=== PATIENT | female | born 1965 | race Caucasian/White ===

== ENCOUNTER 2017-03-19 09:34 | Inpatient (IN) | payer BC ==
[~2017-03-19] VITALS: Ht 157.5 cm; Wt 124.7 kg
[~2017-03-19 09:34] MED LIST: ASPI81TA2 PO; AZIT250T PO; DIAZ5TAB PO; Ipratropium/Albuterol Sulfate NEB; ONDA4TAB10 PO; OXYC-323 PO; PHEN37.53 PO; TIZA4CAP PO; TRAM50TA PO
--- NOTE | 2017-03-19 10:15 | NUR ---
The patient, HALIE REYNOSO, 51 y/o, F admitted by LIZ RIVAS MD, was given written information regarding hospital policies, unit procedures and contact persons. Patient arrived from home accompanied by spouse. Denies pain at this time. Patient was instructed on use of call light. Patient resting in bed at this time.
[2017-03-19 10:30] VITALS: BP 135/80
[2017-03-19 11:05] VITALS: BP 135/80
--- NOTE | 2017-03-19 11:20 | EKG ---
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
[2017-03-19 11:23] LABS: BASO % 1 % (0-3); EOS # 0.1 x10^3/uL (0.0-0.7); EOS % 2 % (0-3); HEMATOCRIT 40.1 % (36.0-47.0); HEMOGLOBIN 13.3 g/dL (12.0-15.5); LYMPH # 1.8 x10^3/uL (1.0-4.8); LYMPH % 25 % (24-48); MEAN CORPUSCULAR HEMOGLOBIN 31 pg (25-35); MEAN CORPUSCULAR HGB CONC 33 g/dL (31-37); MEAN CORPUSCULAR VOLUME 94 fL (79-100); MONO # 0.5 x10^3/uL (0.0-1.1); MONO % 7 % (0-9); NEUT # 4.7 x10^3uL (1.8-7.7); NEUT % 66 % (31-73); PLATELET COUNT 235 x10^3/uL (140-400); RED BLOOD COUNT 4.28 x10^6/uL (3.50-5.40); RED CELL DISTRIBUTION WIDTH 13.8 % (11.5-14.5); WHITE BLOOD COUNT 7.1 x10^3/uL (4.0-11.0)
[2017-03-19 11:47] LABS: ALBUMIN 3.6 g/dL (3.4-5.0); CALCIUM 8.6 mg/dL (8.5-10.1); CREATININE 0.9 mg/dL (0.6-1.0); GFR 65.8; POTASSIUM 4.3 mmol/L (3.5-5.1); TOTAL BILIRUBIN 0.6 mg/dL (0.2-1.0); TOTAL PROTEIN 7.1 g/dL (6.4-8.2)
[2017-03-19] MEDS ORDERED: FLUO20CA16 PO (12:07)
[2017-03-19] MEDS ORDERED: ALPR0.254 PO (12:07)
[2017-03-19] MEDS ORDERED: HYDR12.58 PO (12:07)
[2017-03-19] MEDS ORDERED: LISI-334 PO (12:07)
--- NOTE | 2017-03-19 12:38 | RAD ---
Exam: PA and lateral chest radiograph History: Chest pain and pressure, shortness of air. Comparison: 02/04/2016. Findings: Cardiomediastinal silhouette is within normal limits for size. Bilateral lung nguyễn are free of focal infiltrate. No pleural effusion is seen. Cholecystectomy clips are present. Impression: No acute cardiopulmonary process.
[2017-03-19 15:10] VITALS: BP 153/51
--- NOTE | 2017-03-19 17:16 | PDOC2 ---
CONSULT The patient has been seen and examined and the full consult has been dictated.~ I have summarized the most important points for review while the note is being transcribed.~ Please see the dictation for complete details. Summary: CP: Atypical Repeat Trop. If negative, dc home with OP w/u Problems: SIMRAN MENA MD Mar 19, 2017 17:16
--- NOTE | 2017-03-19 17:35 | NUR ---
Per Dr. Weathers, run troponin, if negative, patient can discharge to home.
--- NOTE | 2017-03-19 18:27 | NUR ---
Discharge Note: HALIE REYNOSO [address] Discharge instructions and discharge home medications reviewed with Patient and a copy given. All questions have been answered and understanding verbalized. The following instructions and handouts were given: chest pain Discontinued lines and drains: IV removed. Patient discharged to home accompanied by spouse and family.
--- NOTE | 2017-03-19 18:27 | NUR ---
Troponin negative. Verified okay to discharge with Dr. Cee.
[2017-03-19] MEDS ORDERED: ENOXAPARIN 40 MG/0.4 ML DISP.SYRIN. SQ SCH (21:00)
--- NOTE | 2017-03-19 23:04 | CONS ---
DATE OF CONSULTATION: 03/19/2017 CARDIOLOGY CONSULTATION REASON FOR CONSULTATION: Chest pain. REQUESTING PHYSICIAN: The person requesting the consultation is Dr. Liz Cee. HISTORY OF PRESENT ILLNESS: This is a 51-year-old white female with a history of obesity and hypertension, who went to see her primary care today for followup of some labs for evaluation of SLE. While over there, she reported that she has been having pain in the back of her neck and upper left shoulder and hence has been admitted to rule out a myocardial infarction. She is currently pain free. She reports that the pain gets worse sometimes with inspiration, occasionally with walking, but also at rest. There is no consistent relationship to exertion. She in fact has stairs at home, which she has used to go up and down, which does not always cause shortness of breath or chest pain. She does get edema towards the end of the day. REVIEW OF SYSTEMS: Shortness of breath, chest pain and edema. There are no fevers. There is no cough. The rest of the 10 organ review of system was negative. PREVIOUS MEDICAL HISTORY: She has a history of hypertension. There is no history of diabetes, stroke, vascular disease or congestive heart failure. FAMILY HISTORY: There is no family history of premature coronary artery disease. SOCIAL HISTORY: She does not do any exercises. 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 She does not smoke or take alcohol. MEDICATIONS: Prior to admission, hydrochlorothiazide 25 mg once a day, lisinopril 20 mg once a day, alprazolam and Prozac. PAST SURGICAL HISTORY: She is status post hysterectomy, appendicectomy, cholecystectomy and bone spurs. PHYSICAL EXAMINATION: GENERAL: She is morbidly obese. Her pulse rate is 72 and regular. Blood pressure is 153/51 but has ranged from 135/80-153/51. O2 sats are 95% on room air. HEENT: Pupils are equal and reactive. Extraocular movements are normal. Sclerae clear. Mucous membranes are moist. NECK: Supple. No thyromegaly. Jugular venous pressure is not elevated. No carotid bruits. CARDIOVASCULAR SYSTEM: Revealed normal first and second heart sounds. There are no murmurs, rubs or gallops. LUNGS: Chest has equal breath sounds bilaterally without adventitious sounds. There are no adventitious sounds. No wheezes. ABDOMEN: Morbidly obese. There are no palpable mass or pulsations. There are no bruits. EXTREMITIES: Reveal no edema. Her distal pulses were well felt. MUSCULOSKELETAL: There is no cyanosis or clubbing. There is no tremors. NEUROLOGIC: There is no facial asymmetry. There are no motor or sensory deficits. SKIN: There are no skin rashes. There is no calf muscle tenderness or swelling. INVESTIGATIONS: An EKG shows sinus rhythm without any ST-T wave abnormalities. Her D-dimer and troponin are negative. IMPRESSION: 1. Chest pain: etiology uncertain. The pain is atypical. There are some pleuritic components. There is no definite exertional component. Her EKGs and troponin is negative. She will repeat another troponin and if this is negative, she will evaluate this as an outpatient. 2. Exertional dyspnea: There are no obvious evidence of congestive heart failure. NT-proBNP is negative at 111. We shall get an echocardiogram done as an outpatient. 3. Obesity: I have counseled her about diet and exercise. 4. Other risk factors: There is no family history of coronary artery disease. She does not smoke. Her lipids showed total cholesterol of 162, LDL 97, HDL 53 and triglycerides 63. SIMRAN MENA MD DR: BEULAH/leo JOB#: [id number] / [id number] LIZ Erwin MD
== END 2017-03-19 18:34 | disposition home or self-care (01) | DRG 313 ==
LOC: 1 SOUTH 10:22
PROVIDERS: ADMIT Family Medicine; ATTEND Family Medicine
DX: R07.89 Other chest pain (principal); Z68.43 Body mass index [BMI] 50.0-59.9, adult; M54.9 Dorsalgia, unspecified; R06.09 Other forms of dyspnea; E66.9 Obesity, unspecified; I10 Essential (primary) hypertension; Z90.710 Acquired absence of both cervix and uterus; Z88.5 Allergy status to narcotic agent; Z88.0 Allergy status to penicillin; Z88.8 Allergy status to other drugs, medicaments and biological substances
CPT/HCPCS: 36415; 71020; 80053; 80061; 82550; 83880; 84484; 85027; 85379; 93005

== ENCOUNTER → 2018-01-30 | Outpatient (CLI) | payer BC ==
[~2018-01-30] MED LIST changes: +ALPR0.254 PO; +ASPI-630 PO; -ASPI81TA2 PO; +FLUO20CA16 PO; +HYDR12.58 PO; +LISI-334 PO
--- NOTE | 2018-01-30 14:15 | RAD ---
CT abdomen/pelvis without contrast 01/30/2018 3:30 PM Indication: Right flank pain. Hematuria. Comparison: 11/20/2016 CT abdomen/pelvis Technique: Multiple axial CT images of the abdomen and pelvis were obtained without intravenous contrast. Coronal and sagittal reformats are provided. Findings: There is a 4 mm calcified granuloma the left lung base. Heart size is within normal limits. Evaluation of the solid abdominal viscera is limited by lack of intravenous contrast. There is diffuse hypoattenuation of the hepatic parenchyma suggestive of hepatic steatosis. The spleen is normal in size. Pancreas is normal. Gallbladder is surgically absent. Adrenal glands are normal. The abdominal aorta is normal in course and caliber. There are no pathologically enlarged lymph nodes in the abdomen and pelvis. There is no abdominal free fluid. There is no free intraperitoneal air. Kidneys are symmetric in appearance. There are no calculi identified in the kidneys, ureters or urinary bladder. There is no hydronephrosis. No contour deforming renal mass is suspected. Small and large bowel are normal in caliber. There is no evidence for bowel obstruction. Mild diverticulosis of the sigmoid colon is present. The appendix not visualized. There are no inflammatory changes in the right lower quadrant. Urinary bladder is within normal limits given degree of distention. Uterus is surgically absent. No suspicious adnexal mass is visualized. There are no suspicious osseous lesions. Impression: 1. There are no renal calculi visualized. There is no hydronephrosis. No evidence for obstructive uropathy. If there is persistent clinical concern for hematuria, further evaluation with CT urogram may be of benefit. 2. The appendix is not visualized. There are no inflammatory changes in the right lower quadrant. 3. Diffuse hepatic steatosis. PQRS Compliance Statement: One or more of the following individualized dose reduction techniques were utilized for this examination: 1. Automated exposure control 2. Adjustment of the mA and/or kV according to patient size 3. Use of iterative reconstruction technique
== END | disposition home or self-care (01) ==
LOC: CT 13:15
PROVIDERS: ATTEND Nurse Practitioner Family
DX: R10.11 Right upper quadrant pain (principal); R31.29 Other microscopic hematuria; N22 Calculus of urinary tract in diseases classified elsewhere; K76.0 Fatty (change of) liver, not elsewhere classified
CPT/HCPCS: 74176

== ENCOUNTER 2018-09-20 22:09 | Emergency (ER) | payer BC ==
[~2018-09-20] VITALS: Ht 162.6 cm; Wt 121.6 kg
--- NOTE | 2018-09-20 22:50 | PHYS DOC ---
Past History Past Medical History: Kidney Stones Past Surgical History: Appendectomy, Cholecystectomy, Hysterectomy, Tonsillectomy Alcohol Use: Rarely Drug Use: None Adult General Chief Complaint Chief Complaint: DYSPNEA/RESPIRATOY DISTRESS HPI HPI Patient is a 53 year old female who presents with complaint of right-sided chest and back pain. Patient states that her symptoms have been present over the past 4-5 days. Patient also notes that she has been feeling increasingly short of breath with the symptoms. The patient states that she had a chest x- ray 2 days ago and was told that she had an area in the right lower lobe that looked like "inflammation." Patient states that she was supposed to have a CT scan completed, however this has not been done yet at this time. Denies any associated fever, abdominal pain, or vomiting. Patient also notes that she had blood work done and states that she was told her inflammatory markers were elevated. Due to worsening symptoms this evening the patient came to the emergency department for further evaluation. Patient states that she follows at the office of Dr. Rivas. Has not taken any medications for her symptoms. Patient notes history of lupus. Patient also notes that she was recently treated with antibiotics for bronchitis approximately one month ago. Review of Systems Review of Systems Constitutional: Denies fever or chills [] Eyes: Denies change in visual acuity, redness, or eye pain [] HENT: Denies nasal congestion or sore throat [] Respiratory: Shortness of breath, denies cough[] Cardiovascular: Chest pain, denies edema[] GI: Denies abdominal pain, nausea, vomiting, bloody stools or diarrhea [] : Denies dysuria or hematuria [] Musculoskeletal: Back pain, right shoulder pain[] Integument: Denies rash or skin lesions [] Neurologic: Denies headache, focal weakness or sensory changes [] Endocrine: Denies polyuria or polydipsia [] All other systems were reviewed and found to be within normal limits, except as documented in this note. Current Medications Current Medications Current Medications Medications (Trade) Dose Ordered Sig/Chayito Start Time Stop Time Status Last Admin Dose Admin Fentanyl Citrate (Fentanyl 2ml Vial) 50 mcg PRN Q15MIN PRN 09/20/18 22:45 09/21/18 22:44 UNV Ondansetron HCl (Zofran) 4 mg 1X ONCE 09/20/18 22:45 09/20/18 22:46 UNV Sodium Chloride 1,000 ml @ 125 mls/hr Q8H 09/20/18 22:42 09/21/18 06:41 UNV Allergies Allergies Allergies Coded Allergies Type Severity Reaction Last Updated Verified Penicillins Allergy Intermediate Rash 09/20/18 Yes hydrocodone bitartrate Allergy Intermediate 09/20/18 Yes Physical Exam Physical Exam Constitutional: Alert, afebrile, morbidly obese, appears in moderate discomfort. [] HENT: Normocephalic, atraumatic, bilateral external ears normal, oropharynx moist, no oral exudates, nose normal. [] Eyes: PERRLA, EOMI, conjunctiva normal, no discharge. [] Neck: Normal range of motion, no tenderness, supple, no stridor. [] Cardiovascular:Heart rate regular rhythm, no murmur [] Lungs & Thorax: Bilateral breath sounds clear to auscultation [] Abdomen: Bowel sounds normal, soft, no tenderness, no masses, no pulsatile masses. [] Skin: Warm, dry, no erythema, no rash. [] Back: No tenderness, no CVA tenderness. [] Extremities: There is palpation along right midthoracic distribution of rib cage , no cyanosis, no clubbing, ROM intact, no edema. [] Neurologic: Alert and oriented X 3, normal motor function, normal sensory function, no focal deficits noted. [] Current Patient Data Vital Signs Vital Signs Date Time Temp Pulse Resp B/P (MAP) Pulse Ox O2 Delivery O2 Flow Rate FiO2 09/20/18 22:15 74 20 97 Room Air Lab Results Laboratory Tests Test 09/20/18 23:45 White Blood Count 8.0 x10^3/uL Red Blood Count 4.01 x10^6/uL Hemoglobin 12.6 g/dL Hematocrit 37.4 % Mean Corpuscular Volume 93 fL Mean Corpuscular Hemoglobin 32 pg Mean Corpuscular Hemoglobin Concent 34 g/dL Red Cell Distribution Width 13.4 % Platelet Count 231 x10^3/uL Neutrophils (%) (Auto) 61 % Lymphocytes (%) (Auto) 27 % Monocytes (%) (Auto) 9 % Eosinophils (%) (Auto) 2 % Basophils (%) (Auto) 0 % Neutrophils # (Auto) 4.9 x10^3uL Lymphocytes # (Auto) 2.2 x10^3/uL Monocytes # (Auto) 0.7 x10^3/uL Eosinophils # (Auto) 0.2 x10^3/uL Basophils # (Auto) 0.0 x10^3/uL Erythrocyte Sedimentation Rate 20 D-Dimer (Idnigo) 0.33 mg/L Urine Collection Type Void Urine Color Yellow Urine Clarity Clear Urine pH 7.0 Urine Specific Friant 1.020 Urine Protein Neg Urine Glucose (UA) Neg mg/dL Urine Ketones (Stick) Neg mg/dL Urine Blood Neg Urine Nitrite Neg Urine Bilirubin Neg Urine Urobilinogen Dipstick 0.2 mg/dL Urine Leukocyte Esterase Neg Urine RBC Occ /HPF Urine WBC Occ /HPF Urine Squamous Epithelial Cells Few /LPF Urine Bacteria Few /HPF Sodium Level 139 mmol/L Potassium Level 3.9 mmol/L Chloride Level 106 mmol/L Carbon Dioxide Level 25 mmol/L Anion Gap 8 Blood Urea Nitrogen 18 mg/dL Creatinine 0.9 mg/dL Estimated GFR (Cockcroft-Gault) 65.2 BUN/Creatinine Ratio 20 Glucose Level 97 mg/dL Calcium Level 8.7 mg/dL Total Bilirubin 0.7 mg/dL Aspartate Amino Transf (AST/SGOT) 27 U/L Alanine Aminotransferase (ALT/SGPT) 48 U/L Alkaline Phosphatase 69 U/L Creatine Kinase 99 U/L Creatine Kinase MB (Mass) 1.8 ng/mL Creatine Kinase MB Relative Index 1.8 % Troponin I Quantitative < 0.017 ng/mL C-Reactive Protein 22.1 mg/L Total Protein 6.9 g/dL Albumin 3.6 g/dL Albumin/Globulin Ratio 1.1 Current Medications Medications (Trade) Dose Ordered Sig/Chayito Route PRN Reason Start Time Stop Time Status Last Admin Dose Admin Fentanyl Citrate (Fentanyl 2ml Vial) 50 mcg PRN Q15MIN PRN IV PAIN GREATER THAN 3/10 09/20/18 22:45 09/21/18 22:44 09/20/18 23:36 Sodium Chloride 1,000 ml @ 125 mls/hr Q8H IV 09/20/18 23:00 09/21/18 06:59 09/20/18 23:36 Ondansetron HCl (Zofran) 4 mg 1X ONCE IV 09/20/18 23:00 09/20/18 23:01 DC 09/20/18 23:36 Iohexol (Omnipaque 300 Mg/ml) 75 ml 1X ONCE IV 09/21/18 01:30 09/21/18 01:31 DC 09/21/18 01:23 Info (Do NOT chart on this entry -- for MONITORING) 1 each PRN DAILY PRN MC SEE COMMENTS 09/21/18 01:30 09/23/18 01:29 Methylprednisolone Sodium Succinate (SOLU-Medrol 125MG VIAL) 125 mg 1X ONCE IV 09/21/18 02:00 09/21/18 02:01 DC 09/21/18 01:53 EKG EKG Interpreted by me: Heart rate 67, sinus rhythm, normal intervals, normal axis, no acute ST/T-wave abnormalities present[] Radiology/Procedures Radiology/[place] [address] IMAGING REPORT Signed PATIENT: HALIE REYNOSO ACCOUNT: [id number] : 1965 LOCATION: ER AGE: 53 SEX: F EXAM STATUS: REG ER ORD. PHYSICIAN: CHOCO CARLSON MD REASON: Right sided chest pain, right shoulder pain, SOB, elevated CRP PROCEDURE: CT CHEST W/CONTRAST INDICATION: Omni 300 75cc: Right sided chest pain, right shoulder pain, SOB, elevated CRP. Hx: Bronchitis 1 month ago COMPARISON: Chest x-ray from February 2017 TECHNIQUE: Axial CT images obtained through the chest. Images obtained with intravenous contrast. One or more of the following individualized dose reduction techniques were utilized for this examination: 1. Automated exposure control; 2. Adjustment of the mA and/or kV according to patient size; 3. Use of iterative reconstruction technique. FINDINGS: No evidence of pneumothorax. There are multiple bilateral pulmonary nodules measuring up to about 4 mm. No focal airspace consolidation to suggest pneumonia. Partially visualized liver is low-attenuation. No thoracic aortic aneurysm. The ascending thoracic aorta is partially obscured by motion. There are some scattered prominent lymph nodes in the mediastinum including precarinal region measuring up to 11 mm short axis. No embolus in the main, right main or left left main pulmonary artery but not evaluated more distal to this site secondary to motion and contrast bolus timing. Degenerative changes of spine with osteophyte formation. IMPRESSION: No focal airspace consolidation to suggest pneumonia. There are some small bilateral pulmonary nodules measuring up to 4 mm. There is some prominent lymph nodes in the mediastinum including a mildly enlarged lymph node in the precarinal region. Could be reactive in nature but follow-up could be obtained to ensure no growth to exclude less common neoplastic causes. Low attenuation of the liver. Nonspecific but frequently secondary to fatty infiltration. Fleischner Society recommendations for solitary solid lung nodule follow up.: In a low risk patient: <6mm - No follow up required. 6-8mm - 6-[address], then CT at 18-24 months. >8mm - CT at 3 months, PET/CT or tissue sampling. In a high risk patient (history of smoking or other known risk factors): <6mm - Follow up CT at 12 months. 6-8mm - 6-[address], then CT at 18-24 months. >8mm - CT at 3 months, PET/CT or tissue sampling. Fleischner Society recommendations for multiple solid lung nodule follow up.: In a low risk patient: <6mm - No follow up required. 6-8mm - 3-[address], then CT at 18-24 months. >8mm - CT at 3-6 months, then at 18-24 months. PET/CT or tissue sampling based on most suspicious nodule. In a high risk patient (history of smoking or other known risk factors): <6mm - Follow up CT at 12 months. 6-8mm - 3-[address], then CT at 18-24 months. >8mm - CT at 3-6 months, PET/CT or tissue sampling option based on most suspicious nodule. Electronically signed by: Vicki Mcguire MD (09/21/2018 2:32 AM) [facility] DICTATED AND SIGNED BY: VICKI MCGUIRE MD DATE: 09/21/18 0151 CC: LIZ RIVAS MD; CHOCO CARLSON MD ~ [address] [address] IMAGING REPORT Signed PATIENT: HALIE REYNOSO ACCOUNT: [id number] : 1965 LOCATION: ER AGE: 53 SEX: F EXAM STATUS: REG ER ORD. PHYSICIAN: CHOCO CARLSON MD REASON: Right sided chest and back pain PROCEDURE: PORTABLE CHEST 1V PROCEDURE: PORTABLE CHEST 1V CLINICAL INDICATION: Right sided chest and back pain COMPARISON: 03/15/2017 FINDINGS: No pneumothorax identified. Cardiac and mediastinal contours unremarkable. No pulmonary consolidation or acute airspace disease. No acute osseous abnormalities identified. IMPRESSION: No pulmonary consolidation or acute airspace disease. Electronically signed by: Glenn Martin DO (09/20/2018 11:22 PM) [facility] DICTATED AND SIGNED BY: GLENN MARTIN DO DATE: 09/20/18 [id number] CC: LIZ RIVAS MD; CHOCO CARLSON MD ~ [] Course & Med Decision Making Course & Med Decision Making Pertinent Labs and Imaging studies reviewed. (See chart for details) Patient was treated with fentanyl with initial improvement in pain. Patient found to have elevated CRP level with no evidence of infection at this time. The patient's inflammation may be secondary to chronic lupus with acute exacerbation. Patient's lab work otherwise shows no significant abnormalities. The patient's CT scan shows no obvious acute abnormalities but does note multiple bilateral pulmonary nodules and mediastinal lymph nodes of unknown significance at this time. These findings were communicated to the patient and she was instructed follow-up with Dr. Rivas as she will need to have repeat CT imaging in the next 3 months to assess any changes. Patient will continue treatment with prednisone as outpatient. Patient will need initial ED visit follow-up with Dr. Rivas in the next 3 days. Advised return to emergency department for any worsening symptoms. Patient was understanding and agreement with treatment plan. Dragon Disclaimer Dragon Disclaimer This electronic medical record was generated, in whole or in part, using a voice recognition dictation system. Departure Departure: Impression: Primary Impression: Back pain Additional Impressions: Chest wall pain Elevated C-reactive protein (CRP) Disposition: 01 HOME, SELF-CARE Condition: IMPROVED Referrals: LIZ RIVAS MD (PCP) Patient Instructions: C-Reactive Protein Test (CRP), Musculoskeletal Pain Additional Instructions: Your CT scan did not show an acute cause for your symptoms. Your symptoms are thought to be due to inflammation and your system possibly due to your lupus. Your CT scan however did show enlarged lymph nodes and it is recommended that you have a repeat CT scan in the next 3 months to evaluate for any changes related to these lymph nodes. His recommended a follow-up with Dr. Rivas in the next 3 days for reevaluation of your pain. Return to the emergency department for any worsening symptoms. Scripts Prednisone (PREDNISONE) 20 Mg Tablet 1 TAB PO TID, #15 TAB Prov: CHOCO CARLSON MD 09/21/18 Problem Qualifiers Primary Impression: Back pain Back pain location: back pain in unspecified location Chronicity: acute Back pain laterality: right Qualified Codes: M54.9 - Dorsalgia, unspecified CHOCO CARLSON MD Sep 20, 2018 22:50
--- NOTE | 2018-09-20 22:52 | EKG ---
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
[2018-09-20] MEDS ORDERED: ONDANSETRON PF 4 MG/2 ML VIAL. IV ONE (23:00)
[2018-09-20] MEDS ORDERED: IV NORMAL SALINE 1,000ML 1,000 ML IV SCH (23:00)
--- NOTE | 2018-09-20 23:25 | RAD ---
PROCEDURE: PORTABLE CHEST 1V CLINICAL INDICATION: Right sided chest and back pain COMPARISON: 03/15/2017 FINDINGS: No pneumothorax identified. Cardiac and mediastinal contours unremarkable. No pulmonary consolidation or acute airspace disease. No acute osseous abnormalities identified. IMPRESSION: No pulmonary consolidation or acute airspace disease. Electronically signed by: Glenn Martin DO (09/20/2018 11:22 PM) [facility]
[2018-09-21 00:14] LABS: BASO % 0 % (0-3); EOS # 0.2 x10^3/uL (0.0-0.7); EOS % 2 % (0-3); HEMATOCRIT 37.4 % (36.0-47.0); HEMOGLOBIN 12.6 g/dL (12.0-15.5); LYMPH # 2.2 x10^3/uL (1.0-4.8); LYMPH % 27 % (24-48); MEAN CORPUSCULAR HEMOGLOBIN 32 pg (25-35); MEAN CORPUSCULAR HGB CONC 34 g/dL (31-37); MEAN CORPUSCULAR VOLUME 93 fL (79-100); MONO # 0.7 x10^3/uL (0.0-1.1); MONO % 9 % (0-9); NEUT # 4.9 x10^3uL (1.8-7.7); NEUT % 61 % (31-73); PLATELET COUNT 231 x10^3/uL (140-400); RED BLOOD COUNT 4.01 x10^6/uL (3.50-5.40); RED CELL DISTRIBUTION WIDTH 13.4 % (11.5-14.5)
[2018-09-21 00:26] LABS: BACTERIA,URINE FEW /HPF (0-FEW); BILIRUBIN,URINE NEG (NEG); CLARITY,URINE CLEAR; COLOR,URINE YELLOW; GLUCOSE,URINE NEG (NEG); NITRITE,URINE NEG (NEG); RBC,URINE OCC /HPF (0-2); SQUAMOUS EPITHELIAL CELL,UR FEW /LPF; UROBILINOGEN,URINE 0.2 mg/dL (0.2 mg/dL); WBC,URINE OCC /HPF (0-4)
[2018-09-21 00:32] LABS: ALBUMIN 3.6 g/dL (3.4-5.0); ALBUMIN/GLOBULIN RATIO 1.1 (1.0-1.7); CALCIUM 8.7 mg/dL (8.5-10.1); CREATININE 0.9 mg/dL (0.6-1.0); GFR 65.2; POTASSIUM 3.9 mmol/L (3.5-5.1); TOTAL BILIRUBIN 0.7 mg/dL (0.2-1.0); TOTAL PROTEIN 6.9 g/dL (6.4-8.2)
[2018-09-21] MEDS ORDERED: IOHEXOL 300 MG/ML 75 ML VIAL. IV ONE (01:30)
[2018-09-21] MEDS ORDERED: CONTRAST GIVEN MC PRN (01:30)
[2018-09-21] MEDS ORDERED: methylPREDNISolone SOD SUCC PF 125 MG/2 ML VIAL. IV ONE (02:00)
--- NOTE | 2018-09-21 02:36 | RAD ---
INDICATION: Omni 300 75cc: Right sided chest pain, right shoulder pain, SOB, elevated CRP. Hx: Bronchitis 1 month ago COMPARISON: Chest x-ray from February 2017 TECHNIQUE: Axial CT images obtained through the chest. Images obtained with intravenous contrast. One or more of the following individualized dose reduction techniques were utilized for this examination: 1. Automated exposure control; 2. Adjustment of the mA and/or kV according to patient size; 3. Use of iterative reconstruction technique. FINDINGS: No evidence of pneumothorax. There are multiple bilateral pulmonary nodules measuring up to about 4 mm. No focal airspace consolidation to suggest pneumonia. Partially visualized liver is low-attenuation. No thoracic aortic aneurysm. The ascending thoracic aorta is partially obscured by motion. There are some scattered prominent lymph nodes in the mediastinum including precarinal region measuring up to 11 mm short axis. No embolus in the main, right main or left left main pulmonary artery but not evaluated more distal to this site secondary to motion and contrast bolus timing. Degenerative changes of spine with osteophyte formation. IMPRESSION: No focal airspace consolidation to suggest pneumonia. There are some small bilateral pulmonary nodules measuring up to 4 mm. There is some prominent lymph nodes in the mediastinum including a mildly enlarged lymph node in the precarinal region. Could be reactive in nature but follow-up could be obtained to ensure no growth to exclude less common neoplastic causes. Low attenuation of the liver. Nonspecific but frequently secondary to fatty infiltration. Fleischner Society recommendations for solitary solid lung nodule follow up.: In a low risk patient: <6mm - No follow up required. 6-8mm - 6-[address], then CT at 18-24 months. >8mm - CT at 3 months, PET/CT or tissue sampling. In a high risk patient (history of smoking or other known risk factors): <6mm - Follow up CT at 12 months. 6-8mm - 6-[address], then CT at 18-24 months. >8mm - CT at 3 months, PET/CT or tissue sampling. Fleischner Society recommendations for multiple solid lung nodule follow up.: In a low risk patient: <6mm - No follow up required. 6-8mm - 3-[address], then CT at 18-24 months. >8mm - CT at 3-6 months, then at 18-24 months. PET/CT or tissue sampling based on most suspicious nodule. In a high risk patient (history of smoking or other known risk factors): <6mm - Follow up CT at 12 months. 6-8mm - 3-[address], then CT at 18-24 months. >8mm - CT at 3-6 months, PET/CT or tissue sampling option based on most suspicious nodule. Electronically signed by: Brennen Coreas MD (09/21/2018 2:32 AM) [facility]
[2018-09-21] MEDS ORDERED: PRED20TA PO (02:47)
[2018-09-21 03:00] VITALS: BP 155/81
== END 2018-09-21 02:59 | disposition home or self-care (01) ==
LOC: ER 22:09
DX: R07.81 Pleurodynia (principal); R07.89 Other chest pain; R79.82 Elevated C-reactive protein (CRP); M25.511 Pain in right shoulder; Z87.442 Personal history of urinary calculi; Z88.0 Allergy status to penicillin; Z88.5 Allergy status to narcotic agent
CPT/HCPCS: 36415; 71045; 71260; 80053; 81001; 82553; 84484; 85025; 85379; 85651; 86140; 93005; 96361; 96374; 96375; 99285; J2405; J2930; J3010; Q9967; J7030

== ENCOUNTER → 2019-01-27 | Outpatient (CLI) | payer BC ==
[~2019-01-27] MED LIST changes: -OXYC-323 PO; +OXYC1TAB15 PO; +PRED20TA PO
[2019-01-27] MEDS: IOHEXOL 300 MG/ML 75 ML VIAL. IV ONE (08:07)
--- NOTE | 2019-01-27 09:14 | RAD ---
EXAM: CT Chest with IV contrast CLINICAL HISTORY: F/U Chronic dry cough, abnormal CT 08/2018. Bilat nodules 4mm, Mediastinal lymph nodes ms 11mm,No surgery to chest. COMPARISON: CT chest 09/21/2018, CT chest 03/08/2010 TECHNIQUE: CT of the chest following the administration of intravenous contrast. Axial, coronal and sagittal reformatted images were generated. ---PQRS compliance statement - One or more of the following individualized dose reduction techniques were utilized for this study: 1. Automated exposure control 2. Adjustment of the mA and/or kV according to patient size 3. Use of iterative reconstruction technique--- FINDINGS: CHEST: The heart is not enlarged. No pericardial effusion. Prominent mediastinal and hilar lymph nodes are seen, no lymphadenopathy by size criteria. The precarinal mediastinal lymph node now measures 1.2 x 0.7 cm, previously 1.5 x 1.1 centimeters. No axillary lymphadenopathy. No pleural effusion or pneumothorax. A 4 mm left lower lobe lung nodule abutting the left hemidiaphragm is now partially calcified, likely calcified granuloma. A 3 mm right middle lobe fissural lung nodule (series 6 image 133) is stable. Additional 3-4 mm bilateral lung nodules are essentially stable. Visualized Upper abdomen: Diffuse hepatic hypoattenuation may be seen with hepatic steatosis. Bones: Multilevel degenerative changes of the spine are seen. IMPRESSION: 1. Bilateral lung nodules are stable in size. An additional CT from 03/08/2010 is now made available for comparison. In general these lung nodules are essentially stable to 02/2010. 2. Interval decrease in size of the previously described precarinal mediastinal lymph node, now essentially normal in appearance. 3. Diffuse hepatic hypoattenuation may be seen with hepatic steatosis. Electronically signed by: Carlos Avila MD (01/27/2019 9:11 AM) [facility]
== END | disposition home or self-care (01) ==
LOC: CT 07:18
PROVIDERS: ATTEND Nurse Practitioner Family
DX: R91.8 Other nonspecific abnormal finding of lung field (principal); R06.2 Wheezing; R06.02 Shortness of breath; R05 Cough
CPT/HCPCS: 71260; Q9967

== ENCOUNTER 2019-12-23 11:00 | Emergency (ER) | payer BC ==
[~2019-12-23] VITALS: Ht 162.6 cm; Wt 118.0 kg
[2019-12-23] MEDS ORDERED: IV NORMAL SALINE 1,000ML 1,000 ML IV ONE (11:15)
[2019-12-23 11:39] LABS: BASO % 1 % (0-3); EOS # 0.1 x10^3/uL (0.0-0.7); EOS % 1 % (0-3); HEMATOCRIT 41.3 % (36.0-47.0); HEMOGLOBIN 13.7 g/dL (12.0-15.5); LYMPH # 2.2 x10^3/uL (1.0-4.8); LYMPH % 28 % (24-48); MEAN CORPUSCULAR HEMOGLOBIN 32 pg (25-35); MEAN CORPUSCULAR HGB CONC 33 g/dL (31-37); MEAN CORPUSCULAR VOLUME 95 fL (79-100); MONO # 0.6 x10^3/uL (0.0-1.1); MONO % 8 % (0-9); NEUT # 4.9 x10^3uL (1.8-7.7); NEUT % 63 % (31-73); PLATELET COUNT 242 x10^3/uL (140-400); RED BLOOD COUNT 4.35 x10^6/uL (3.50-5.40); RED CELL DISTRIBUTION WIDTH 13.4 % (11.5-14.5); WHITE BLOOD COUNT 7.8 x10^3/uL (4.0-11.0)
[2019-12-23 11:43] LABS: CALCIUM 8.4 mg/dL (8.5-10.1); CREATININE 0.8 mg/dL (0.6-1.0); GFR 74.5; POTASSIUM 3.9 mmol/L (3.5-5.1)
[2019-12-23] MEDS ORDERED: ONDANSETRON PF 4 MG/2 ML VIAL. IVP ONE (11:45)
[2019-12-23] MEDS ORDERED: KETOROLAC 30 MG/ML VIAL. IVP ONE (11:45)
[2019-12-23 11:49] LABS: ALBUMIN 3.8 g/dL (3.4-5.0); ALBUMIN/GLOBULIN RATIO 1.1 (1.0-1.7); TOTAL BILIRUBIN 0.5 mg/dL (0.2-1.0); TOTAL PROTEIN 7.3 g/dL (6.4-8.2)
--- NOTE | 2019-12-23 12:11 | RAD ---
EXAM: Abdomen and pelvis CT without intravenous contrast. HISTORY: Flank pain. TECHNIQUE: Computed tomographic images of the abdomen and pelvis were obtained without contrast. Multiplanar reformatting was performed. *One or more of the following individualized dose reduction techniques were utilized for this examination: 1. Automated exposure control. 2. Adjustment of the mA and/or kV according to patient size. 3. Use of iterative reconstruction technique. COMPARISON: 01/30/2018. FINDINGS: Evaluation of the lower thorax is unremarkable. No focal hepatic lesion is seen. The liver size appears appropriate for body habitus. There is hepatic steatosis. The gallbladder is surgically absent. The pancreas, spleen and adrenal glands are unremarkable. There are prominent right greater than left renal collecting systems without evidence of an obstructing lesion. This may be due to the hydration status of patient. No justine hydronephrosis is seen. No renal or ureteral stone is seen. There is mild renal cortical lobulation. No discrete lesion is seen. No abnormally thickened or dilated loop of bowel is seen. There is sigmoid diverticulosis. The aorta is normal in caliber. There is no lymphadenopathy. There is a tiny fat-containing supraumbilical hernia to the left of midline. There is no suspicious osseous lesion. IMPRESSION: 1. Prominent left greater than right renal collecting system without evidence of obstructing lesion. This may be due to the hydration status of patient. There is no justine hydronephrosis. 2. Sigmoid diverticulosis. 3. Hepatic steatosis. Electronically signed by: Mehnaz Warren MD (12/23/2019 12:08 PM) [facility] [place]
--- NOTE | 2019-12-23 12:25 | PHYS DOC ---
Past History Past Medical History: Hypertension, Kidney Stones, Other Past Surgical History: Appendectomy, Cholecystectomy, Hysterectomy, Tonsillectomy Alcohol Use: Rarely Drug Use: None Adult General Chief Complaint Chief Complaint: FLANK PAIN HPI HPI 54-year-old female presents with right flank pain. She has been having intermitt ent flank pain for last couple of weeks. She has episodes of pain. She describes them as a deep squeezing sensation that lasts for several seconds to a minute. These episodes can be as frequent as every few seconds to every 30 minutes. These are mostly tolerable and a low level. She presents today because the intensity has been higher. Her pain has been up to 5 out of 10. She denies dysuria or increased urinary frequency. She did see her PCP yesterday and they decided to place her on Bactrim anyway though they said they weren't sure if she had a UTI. She has not taken this medication yet because the pharmacy was too busy last night. History of kidney stones. She denies any falls or trauma. Denies fever or chills. Review of Systems Review of Systems Constitutional: Denies fever or chills [] Eyes: Denies change in visual acuity, redness, or eye pain [] HENT: Denies nasal congestion or sore throat [] Respiratory: Denies cough or shortness of breath [] Cardiovascular: No additional information not addressed in HPI [] GI: Denies abdominal pain, nausea, vomiting, bloody stools or diarrhea [] : Denies dysuria or hematuria [] Musculoskeletal: Right flank pain[] Integument: Denies rash or skin lesions [] Neurologic: Denies headache, focal weakness or sensory changes [] Endocrine: Denies polyuria or polydipsia [] All other systems were reviewed and found to be within normal limits, except as documented in this note. Current Medications Current Medications Current Medications Medications (Trade) Dose Ordered Sig/Chayito Start Time Stop Time Status Last Admin Dose Admin Ketorolac Tromethamine (Toradol 30mg Vial) 30 mg 1X ONCE 12/23/19 11:45 12/23/19 11:46 DC 12/23/19 11:50 30 MG Ondansetron HCl (Zofran) 4 mg 1X ONCE 12/23/19 11:45 12/23/19 11:46 DC 12/23/19 11:54 4 MG Sodium Chloride 1,000 ml @ 1,000 mls/hr 1X ONCE 12/23/19 11:15 12/23/19 12:14 DC 12/23/19 11:15 1,000 MLS/HR Allergies Allergies Allergies Coded Allergies Type Severity Reaction Last Updated Verified Penicillins Allergy Intermediate Rash 09/20/18 Yes hydrocodone bitartrate Allergy Intermediate 09/20/18 Yes Physical Exam Physical Exam Constitutional: Well developed, morbidly obese, well nourished, no acute distress, non-toxic appearance. [] HENT: Normocephalic, atraumatic, bilateral external ears normal, oropharynx moist, no oral exudates, nose normal. [] Eyes: PERRLA, EOMI, conjunctiva normal, no discharge. [] Neck: Normal range of motion, no tenderness, supple, no stridor. [] Cardiovascular: Heart rate regular rhythm, no murmur [] Lungs & Thorax: Bilateral breath sounds clear to auscultation [] Abdomen: Bowel sounds normal, soft, no tenderness, no masses, no pulsatile masses. [] Skin: Warm, dry, no erythema, no rash. [] Back: No tenderness, moderate right CVA tenderness. [] Extremities: No tenderness, no cyanosis, no clubbing, ROM intact, no edema. [] Neurologic: Alert and oriented X 3, normal motor function, normal sensory function, no focal deficits noted. [] Psychologic: Affect normal, judgement normal, mood normal. [] Current Patient Data Vital Signs Vital Signs Date Time Temp Pulse Resp B/P (MAP) Pulse Ox O2 Delivery O2 Flow Rate FiO2 12/23/19 12:05 82 18 187/88 (121) 99 Room Air 12/23/19 11:10 97.7 Lab Results Laboratory Tests Test 12/23/19 11:22 White Blood Count 7.8 x10^3/uL (4.0-11.0) Red Blood Count 4.35 x10^6/uL (3.50-5.40) Hemoglobin 13.7 g/dL (12.0-15.5) Hematocrit 41.3 % (36.0-47.0) Mean Corpuscular Volume 95 fL (79-100) Mean Corpuscular Hemoglobin 32 pg (25-35) Mean Corpuscular Hemoglobin Concent 33 g/dL (31-37) Red Cell Distribution Width 13.4 % (11.5-14.5) Platelet Count 242 x10^3/uL (140-400) Neutrophils (%) (Auto) 63 % (31-73) Lymphocytes (%) (Auto) 28 % (24-48) Monocytes (%) (Auto) 8 % (0-9) Eosinophils (%) (Auto) 1 % (0-3) Basophils (%) (Auto) 1 % (0-3) Neutrophils # (Auto) 4.9 x10^3uL (1.8-7.7) Lymphocytes # (Auto) 2.2 x10^3/uL (1.0-4.8) Monocytes # (Auto) 0.6 x10^3/uL (0.0-1.1) Eosinophils # (Auto) 0.1 x10^3/uL (0.0-0.7) Basophils # (Auto) 0.0 x10^3/uL (0.0-0.2) Sodium Level 140 mmol/L (136-145) Potassium Level 3.9 mmol/L (3.5-5.1) Chloride Level 104 mmol/L (98-107) Carbon Dioxide Level 25 mmol/L (21-32) Anion Gap 11 (6-14) Blood Urea Nitrogen 13 mg/dL (7-20) Creatinine 0.8 mg/dL (0.6-1.0) Estimated GFR (Cockcroft-Gault) 74.5 BUN/Creatinine Ratio 16 (6-20) Glucose Level 94 mg/dL (70-99) Calcium Level 8.4 mg/dL (8.5-10.1) L Total Bilirubin 0.5 mg/dL (0.2-1.0) Aspartate Amino Transferase (AST) 20 U/L (15-37) Alanine Aminotransferase (ALT) 29 U/L (14-59) Alkaline Phosphatase 75 U/L (46-116) Total Protein 7.3 g/dL (6.4-8.2) Albumin 3.8 g/dL (3.4-5.0) Albumin/Globulin Ratio 1.1 (1.0-1.7) EKG EKG [] Radiology/Procedures Radiology/Procedures [] Impressions: EXAM: Abdomen and pelvis CT without intravenous contrast. HISTORY: Flank pain. TECHNIQUE: Computed tomographic images of the abdomen and pelvis were obtained without contrast. Multiplanar reformatting was performed. *One or more of the following individualized dose reduction techniques were utilized for this examination: 1. Automated exposure control. 2. Adjustment of the mA and/or kV according to patient size. 3. Use of iterative reconstruction technique. COMPARISON: 01/30/2018. FINDINGS: Evaluation of the lower thorax is unremarkable. No focal hepatic lesion is seen. The liver size appears appropriate for body habitus. There is hepatic steatosis. The gallbladder is surgically absent. The pancreas, spleen and adrenal glands are unremarkable. There are prominent right greater than left renal collecting systems without evidence of an obstructing lesion. This may be due to the hydration status of patient. No justine hydronephrosis is seen. No renal or ureteral stone is seen. There is mild renal cortical lobulation. No discrete lesion is seen. No abnormally thickened or dilated loop of bowel is seen. There is sigmoid diverticulosis. The aorta is normal in caliber. There is no lymphadenopathy. There is a tiny fat-containing supraumbilical hernia to the left of midline. There is no suspicious osseous lesion. IMPRESSION: 1. Prominent left greater than right renal collecting system without evidence of obstructing lesion. This may be due to the hydration status of patient. There is no justine hydronephrosis. 2. Sigmoid diverticulosis. 3. Hepatic steatosis. Electronically signed by: Mehnaz Warren MD (12/23/2019 12:08 PM) [facility] [place] DICTATED AND SIGNED BY: MEHNAZ WARREN MD DATE: 12/23/19 1208 CC: NIVIA ROSA DO; LIZ RIVAS MD ~ Course & Med Decision Making Course & Med Decision Making Pertinent Labs and Imaging studies reviewed. (See chart for details) The patient's labs are unremarkable. Her CT scan is negative for kidney stone or other significant finding. Her urinalysis was incomplete from the lab as it was a low volume sample and the patient has taken 2 doses of Pyridium. It is possible that the patient just passed a stone today with cannot see. There is some dilation of the left renal collecting system on CT. See official report for more details. The patient was given Toradol for pain. I did additionally give the patient 2 mg of morphine. This decreased her pain to 3 out of 10. I don't see an obvious cause for this pain. Patient does admit she's been helping move recently with lots of painting and moving boxes. This is likely musculoskeletal. I will discharge her with a short course of tramadol because she has had a rash and pruritus with hydrocodone in the past.. I also advised ice and rest. She is stable for discharge at this time. [] Dragon Disclaimer Dragon Disclaimer This electronic medical record was generated, in whole or in part, using a voice recognition dictation system. Departure Departure: Impression: Primary Impression: Flank pain Disposition: HOME, SELF-CARE Condition: STABLE Referrals: LIZ RIVAS MD (PCP) Patient Instructions: Flank Pain, [id number] Scripts Tramadol Hcl (TRAMADOL HCL) 50 Mg Tablet 50 MG PO PRN Q6HRS PRN for PAIN, #20 TAB Prov: NIVIA ROSA DO 12/23/19 NIVIA ROSA DO Dec 23, 2019 12:25
[2019-12-23 12:32] LABS: CLARITY,URINE CLEAR; COLOR,URINE ORANGE
[2019-12-23 12:35] LABS: BACTERIA,URINE FEW /HPF (0-FEW); RBC,URINE 0 /HPF (0-2); SQUAMOUS EPITHELIAL CELL,UR FEW /LPF; WBC,URINE 0 /HPF (0-4)
[2019-12-23] MEDS ORDERED: MORPHINE SULFATE 2 MG/ML DISP.SYRIN. IV ONE (12:45)
[2019-12-23] MEDS ORDERED: TRAM50TA PO (13:29)
[2019-12-23 13:46] VITALS: BP 165/105
== END 2019-12-23 13:46 | disposition home or self-care (01) ==
LOC: ER 11:00
DX: R10.9 Unspecified abdominal pain (principal); I10 Essential (primary) hypertension; K57.30 Diverticulosis of large intestine without perforation or abscess without bleeding; K76.0 Fatty (change of) liver, not elsewhere classified; Z87.442 Personal history of urinary calculi; Z90.89 Acquired absence of other organs; Z90.49 Acquired absence of other specified parts of digestive tract; Z90.710 Acquired absence of both cervix and uterus; Z88.0 Allergy status to penicillin; Z88.5 Allergy status to narcotic agent
CPT/HCPCS: 36415; 74176; 80053; 81001; 85025; 96374; 96375; 99285; J1885; J2270; J2405; 96361; J7030

== ENCOUNTER → 2020-05-05 | Outpatient (CLI) | payer BC ==
--- NOTE | 2020-05-05 19:40 | RAD ---
STUDY: US VENOUS LOWER EXTREMITY LEFT INDICATION: Lower extremity pain and swelling. TECHNIQUE: Color-flow and pulsed wave duplex ultrasound with compression of venous structures of the left lower extremity. COMPARISON: None. FINDINGS: Duplex ultrasound with compression of the deep venous structures of the left lower extremity from the common femoral vein through the popliteal vein is negative for DVT. The posterior tibial and peroneal veins are segmentally visualized and patent where seen. Normal venous waveforms and augmentation are noted throughout. Nonspecific subcutaneous edema below the knee. IMPRESSION: 1. No deep venous thrombosis seen throughout the left lower extremity. 2. Subcutaneous edema seen below the knee. Electronically signed by: SHIRIN MENA MD (05/05/2020 7:37 PM) [id number]
== END | disposition home or self-care (01) ==
LOC: US 17:48
PROVIDERS: ATTEND Family Medicine
DX: R22.42 Localized swelling, mass and lump, left lower limb (principal); M79.605 Pain in left leg
CPT/HCPCS: 93971

== ENCOUNTER → 2020-07-13 | Outpatient (CLI) | payer BC ==
--- NOTE | 2020-07-13 15:59 | RAD ---
EXAM: LUMBAR SPINE 2-3V. HISTORY: Low back pain. COMPARISON: None. FINDINGS: Lumbar alignment is maintained. No fractures are identified. Intervertebral disc heights are maintained for patient age. There is mild endplate remodeling at L3-4. Cholecystectomy clips are noted. IMPRESSION: 1. No fracture or malalignment. Minimal degenerative change. Electronically signed by: Kalrie De La O MD (07/13/2020 3:56 PM) [id number]
== END | disposition home or self-care (01) ==
LOC: RAD 09:43
PROVIDERS: ATTEND Obstetrics & Gynecology
DX: M47.816 Spondylosis without myelopathy or radiculopathy, lumbar region (principal); M62.830 Muscle spasm of back; R35.0 Frequency of micturition; R39.15 Urgency of urination; Z90.49 Acquired absence of other specified parts of digestive tract
CPT/HCPCS: 72100

== ENCOUNTER 2021-07-20 13:15 | Inpatient (IN) | payer BC ==
[~2021-07-20] VITALS: Ht 157.5 cm; Wt 121.4 kg
[~2021-07-20 13:15] MED LIST changes: -LISI-334 PO; +LISI20TA18 PO
[2021-07-20] MEDS ORDERED: IV NORMAL SALINE 1,000ML 1,000 ML IV ONE (13:45)
[2021-07-20] MEDS ORDERED: DEXAMETHASONE SOD PHOS 10 MG/ML VIAL. IVP ONE (13:45)
[2021-07-20] MEDS ORDERED: ONDANSETRON PF 4 MG/2 ML VIAL. IVP ONE ×2 (13:45)
[2021-07-20 14:19] LABS: BASO % 0 % (0-3); EOS % 1 % (0-3); HEMATOCRIT 40.7 % (36.0-47.0); HEMOGLOBIN 13.8 g/dL (12.0-15.5); LYMPH # 0.9 x10^3/uL (1.0-4.8); LYMPH % 22 % (24-48); MEAN CORPUSCULAR HEMOGLOBIN 32 pg (25-35); MEAN CORPUSCULAR HGB CONC 34 g/dL (31-37); MEAN CORPUSCULAR VOLUME 93 fL (79-100); MONO # 0.4 x10^3/uL (0.0-1.1); MONO % 10 % (0-9); NEUT # 2.9 x10^3uL (1.8-7.7); NEUT % 68 % (31-73); PLATELET COUNT 198 x10^3/uL (140-400); RED BLOOD COUNT 4.39 x10^6/uL (3.50-5.40); RED CELL DISTRIBUTION WIDTH 13.4 % (11.5-14.5); WHITE BLOOD COUNT 4.2 x10^3/uL (4.0-11.0)
--- NOTE | 2021-07-20 14:41 | EKG ---
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
[2021-07-20 14:53] LABS: C REACTIVE PROTEIN 75.9 mg/L (0-3.3)
--- NOTE | 2021-07-20 15:06 | PHYS DOC ---
Past History Past Medical History: Hypertension, Kidney Stones, Other (FLAKO JETT APRN) Past Surgical History: No Surgical History, Cholecystectomy, Hysterectomy, Tonsillectomy (FLAKO JETT APRN) Alcohol Use: Rarely Drug Use: None (FLAKO JETT APRN) General Adult EDM: Chief Complaint: SHORTNESS OF BREATH HPI: HPI: Patient is a 56-year-old female presents with shortness of breath, cough, fever. Patient states that she tested +1-week ago. Patient states that her symptoms worsened today and Dr. Lopez sent her to the ER. Patient has history of hypertension. (FLAKO JETT APRN) Review of Systems: Review of Systems: Constitutional: Reports fever and chills Eyes: Denies change in visual acuity HENT: Denies nasal congestion or sore throat Respiratory: Reports cough and shortness of breath Cardiovascular: Denies chest pain or edema GI: Denies abdominal pain, nausea, vomiting, bloody stools or diarrhea : Denies dysuria Musculoskeletal: Denies back pain or joint pain Integument: Denies rash Neurologic: Denies headache, focal weakness or sensory changes Endocrine: Denies polyuria or polydipsia Lymphatic: Denies swollen glands Psychiatric: Denies depression or anxiety (FLAKO JETT APRN) Current Medications: Current Meds: Current Medications Medications (Trade) Dose Ordered Sig/Chayito Start Time Stop Time Status Last Admin Dose Admin Dexamethasone Sodium Phosphate (Decadron) 10 mg 1X ONCE 07/20/21 13:45 07/20/21 13:52 DC 07/20/21 14:10 10 MG Ondansetron HCl (Zofran) 4 mg 1X ONCE 07/20/21 13:45 07/20/21 13:52 DC Sodium Chloride 1,000 ml @ 1,000 mls/hr 1X ONCE 07/20/21 13:45 07/20/21 14:44 DC 07/20/21 14:10 1,000 MLS/HR (FLAKO JETT APRN) Allergies: Allergies: Allergies Coded Allergies Type Severity Reaction Last Updated Verified Penicillins Allergy Intermediate Rash 09/20/18 Yes hydrocodone bitartrate Allergy Intermediate 09/20/18 Yes (FLAKO JETT APRN) Physical Exam: PE: Constitutional: Well developed, well nourished, no acute distress, non-toxic appearance. [] HENT: Normocephalic, atraumatic, bilateral external ears normal, oropharynx moist, no oral exudates, nose normal. [] Eyes: PERRLA, EOMI, conjunctiva normal, no discharge. [] Neck: Normal range of motion, no tenderness, supple, no stridor. [] Cardiovascular:Heart rate regular rhythm, no murmur [] Lungs & Thorax: Bilateral breath sounds clear to auscultation [] Abdomen: Bowel sounds normal, soft, no tenderness, no masses, no pulsatile masses. [] Skin: Warm, dry, no erythema, no rash. [] Back: No tenderness, no CVA tenderness. [] Extremities: No tenderness, no cyanosis, no clubbing, ROM intact, no edema. [] Neurologic: Alert and oriented X 3, normal motor function, normal sensory function, no focal deficits noted. [] Psychologic: Affect normal, judgement normal, mood normal. [] (FLAKO JETT APRN) Current Patient Data: Labs: Laboratory Tests Test 07/20/21 13:55 White Blood Count 4.2 x10^3/uL (4.0-11.0) Red Blood Count 4.39 x10^6/uL (3.50-5.40) Hemoglobin 13.8 g/dL (12.0-15.5) Hematocrit 40.7 % (36.0-47.0) Mean Corpuscular Volume 93 fL (79-100) Mean Corpuscular Hemoglobin 32 pg (25-35) Mean Corpuscular Hemoglobin Concent 34 g/dL (31-37) Red Cell Distribution Width 13.4 % (11.5-14.5) Platelet Count 198 x10^3/uL (140-400) Neutrophils (%) (Auto) 68 % (31-73) Lymphocytes (%) (Auto) 22 % (24-48) L Monocytes (%) (Auto) 10 % (0-9) H Eosinophils (%) (Auto) 1 % (0-3) Basophils (%) (Auto) 0 % (0-3) Neutrophils # (Auto) 2.9 x10^3uL (1.8-7.7) Lymphocytes # (Auto) 0.9 x10^3/uL (1.0-4.8) L Monocytes # (Auto) 0.4 x10^3/uL (0.0-1.1) Eosinophils # (Auto) 0.0 x10^3/uL (0.0-0.7) Basophils # (Auto) 0.0 x10^3/uL (0.0-0.2) D-Dimer (Indigo) 0.75 mg/L (0.00-0.50) H Lactic Acid Level 1.3 mmol/L (0.4-2.0) Lactate Dehydrogenase 293 U/L (81-234) H Creatine Kinase 65 U/L (26-192) Troponin I Quantitative < 0.017 ng/mL (0-0.055) C-Reactive Protein 75.9 mg/L (0-3.3) H Vital Signs: Vital Signs Date Time Temp Pulse Resp B/P (MAP) Pulse Ox O2 Delivery O2 Flow Rate FiO2 07/20/21 13:37 98.3 100 18 142/70 93 Room Air (FLAKO JETT APRN) EKG: EKG: [] (FLAKO JETT APRN) Radiology/Procedures: Radiology/Procedures: []XR CHEST 2V CLINICAL INDICATIONS: Shortness of breath. COMPARISON: September 20, 2018. Findings: Bilateral ill-defined nodular and interstitial lung infiltrates are seen. No pleural effusion or pneumothorax is evident. The heart size, pulmonary vasculature, mediastinum and both skyler are unremarkable. The osseous structures appear intact. IMPRESSION: Bilateral ill-defined nodular and interstitial lung infiltrates are seen which may be seen with atypical pneumonia. Electronically signed by: Drake Correia MD (07/20/2021 3:13 PM) [id number] (FLAKO JETT APRN) Heart Score: C/O Chest Pain: No Risk Factors: Risk Factors: DM, Current or recent (<one month) smoker, HTN, HLP, family history of CAD, obesity. Risk Scores: Score 0 - 3: 2.5% MACE over next 6 weeks - Discharge Home Score 4 - 6: 20.3% MACE over next 6 weeks - Admit for Clinical Observation Score 7 - 10: 72.7% MACE over next 6 weeks - Early Invasive Strategies (FLAKO JETT APRN) Course & Med Decision Making: Course & Med Decision Making Pertinent Labs and Imaging studies reviewed. (See chart for details) [] 56-year-old female who presents with shortness of breath, cough and fever. Patient reports that she tested last Sunday and was positive for Covid. Patient called her PCP this morning,Dr. Lopez, who advised her that she needed to come to the emergency room to be seen. Chest x-ray is positive shows bilateral ill-defined nodular and interstitial lung infiltrates. Patient most likely has Covid pneumonia. Patient has been hypoxic, 88-89% on room air. D-dimer was elevated at 0.75. CTA ordered rule out PE. Spoke with Dr. Lopez who will be accepting patient for Covid pneumonia. Discussed inpatient decision with patient. Patient is appreciative and okay with plan. Patient started on Rocephin and azithromycin. (FLAKO JETT APRN) Dragon Disclaimer: Dragon Disclaimer: This electronic medical record was generated, in whole or in part, using a voice recognition dictation system. (FLAKO JETT APRN) Departure Departure: Impression: Primary Impression: Pneumonia due to COVID-19 virus Additional Impressions: Hypoxia Elevated d-dimer Disposition: ADMITTED INPATIENT Admitting Physician: Corky Rivas (LAY MODI DO) Condition: GUARDED Referrals: CORKY RIVAS MD (PCP) Attending Signature Attending Signature I have reviewed the PA/COMPLAINT ADJUSTER's note and plan of care. I was available for consultation as needed during the patient's visit in the emergency department. I agree with the clinical impression, plan, and disposition. (LAY MODI DO) FLAKO JETT APRN Jul 20, 2021 15:05 LAY MOID DO Jul 20, 2021 23:33
--- NOTE | 2021-07-20 15:16 | RAD ---
XR CHEST 2V CLINICAL INDICATIONS: Shortness of breath. COMPARISON: September 20, 2018. Findings: Bilateral ill-defined nodular and interstitial lung infiltrates are seen. No pleural effusi on or pneumothorax is evident. The heart size, pulmonary vasculature, mediastinum and both skyler are u nremarkable. The osseous structures appear intact. IMPRESSION: Bilateral ill-defined nodular and interstitial lung infiltrates are seen which may be see n with atypical pneumonia. Electronically signed by: Drake Correia MD (07/20/2021 3:13 PM) [id number]
--- NOTE | 2021-07-20 15:36 | RAD ---
CT THORAX WO INDICATION: sob . COMPARISON STUDY: Chest radiograph 07/20/2021. CT chest 01/27/2019. TECHNIQUE: Unenhanced axial images were obtained through the lungs and upper abdomen. Coronal and sa gittal multiplanar reconstructions were also obtained. PQRS compliance statement: One or more of the following individualized dose reduction techniques were utilized for this examinat ion: 1. Automated exposure control 2. Adjustment of the mA and/or kV according to patient size 3. Use of iterative reconstruction technique FINDINGS: Lungs and Airways: Scattered bilateral groundglass opacities consolidations. Normal central airways. Pleura: The pleural spaces are normal. Heart and Mediastinum: The visualized thyroid gland is normal in size and attenuation. No axillary or supraclavicular lymphadenopathy. Several conspicuous but not pathologically enlarged by CT criteria mediastinal lymph nodes. The heart and pericardium are within normal limits. The great vessels of the thorax are normal. Abdomen: Cholecystectomy. Bones and Soft Tissues: The visualized skeletal structures and soft tissues of the chest wall are wit hin normal limits. IMPRESSION: Scattered bilateral groundglass opacities and consolidations, likely multifocal infection. Electronically signed by: James Fountain MD (07/20/2021 3:34 PM) [facility]
[2021-07-20] MEDS ORDERED: AZITHROMYCIN 500 MG in IV NORMAL SALINE 250ML 250 ML IV ONE (16:30)
[2021-07-20 16:37] LABS: CALCIUM 8.3 mg/dL (8.5-10.1); CREATININE 0.9 mg/dL (0.6-1.0); GFR 64.5; POTASSIUM 3.5 mmol/L (3.5-5.1)
[2021-07-20] MEDS ORDERED: cefTRIAXone SODIUM 1 GM VIAL ONE ×2 (16:39→16:50)
[2021-07-20] MEDS ORDERED: IV NORMAL SALINE 50ML 50 ML ONE ×2 (16:39→16:50)
[2021-07-20 16:44] LABS: ALBUMIN 3.1 g/dL (3.4-5.0); ALBUMIN/GLOBULIN RATIO 0.8 (1.0-1.7); TOTAL BILIRUBIN 0.6 mg/dL (0.2-1.0)
[2021-07-20] MEDS ORDERED: IV NORMAL SALINE 250ML 250 ML ONE (17:12)
[2021-07-20] MEDS ORDERED: AZITHROMYCIN 500 MG VIAL. IV ONE (17:13)
[2021-07-20 21:41] VITALS: BP 134/73
[2021-07-20] MEDS ORDERED: ONDANSETRON PF 4 MG/2 ML VIAL. IVP PRN (22:15)
[2021-07-20] MEDS ORDERED: traMADol 50 MG TABLET PO PRN (22:15)
[2021-07-20] MEDS: DEXAMETHASONE SOD PHOS 4 MG/ML VIAL. IVP SCH (23:50)
[2021-07-20] MEDS: ENOXAPARIN 40 MG/0.4 ML SYRINGE. SQ SCH (23:50)
[2021-07-21] MEDS: DEXAMETHASONE SOD PHOS 4 MG/ML VIAL. IVP SCH ×3 (05:27→17:22)
[2021-07-21 06:39] VITALS: BP 132/71
[2021-07-21] MEDS ORDERED: IPRATRPIUM/ALBUTEROL 0.5/2.5MG 3 ML NEBU. NEB SCH (08:00)
[2021-07-21] MEDS: IPRATROPIUM/ALBUTEROL 20/100mcg/INH INHALER. INH SCH ×4 (08:00→21:18)
[2021-07-21] MEDS: ALPRAZolam 0.25 MG TABLET PO SCH ×3 (09:05→21:18)
[2021-07-21] MEDS: AZITHROMYCIN 250 MG TABLET. PO SCH (09:05)
[2021-07-21] MEDS: hydroCHLOROthiazide 25 MG TABLET. PO SCH (09:05)
[2021-07-21] MEDS: LISINOPRIL 20 MG TABLET PO SCH (09:05)
[2021-07-21] MEDS: LACTOBACILLUS RHAMNOSUS GG 1 CAPSULE. PO SCH ×2 (09:05→21:18)
[2021-07-21] MEDS: ENOXAPARIN 40 MG/0.4 ML SYRINGE. SQ SCH ×2 (09:06→21:18)
[2021-07-21] MEDS ORDERED: IPRATRPIUM/ALBUTEROL 0.5/2.5MG 3 ML NEBU. NEB ONE (09:45)
[2021-07-21] MEDS ORDERED: ACETAMINOPHEN/CODEINE 300/30MG TABLET PO SCH (10:00)
[2021-07-21 10:50] VITALS: BP 148/90
[2021-07-21] MEDS ORDERED: REMDESIVIR LOAD in IV NORMAL SALINE 250ML TV IV ONE (13:00)
[2021-07-21] MEDS ORDERED: ACETAMINOPHEN/CODEINE 300/30MG TABLET PO PRN (14:00)
[2021-07-21 15:17] VITALS: BP 124/83
--- NOTE | 2021-07-21 18:47 | HP ---
HISTORY OF PRESENT ILLNESS: A 56-year-old female with history of COVID-19. The patient notes she has been having increased shortness of breath, being treated as an outpatient and despite treatment the patient has got increasingly worse, came in, had oxygen saturation in the low 80%, came in through the Emergency Room. She was admitted for COVID-19 pneumonia with respiratory failure. PAST MEDICAL HISTORY: Tonsillitis, left ear deafness, cardiac disorders, heart attack, hypertension, pneumonias, cholecystectomy, appendectomy, morbid obesity, hysterectomy, previous pregnancies, kidney stones, kidney surgery, stone removal, musculoskeletal problems, left knee surgery, systemic lupus erythematosus, SLE, obsessive compulsive disorder, depression, medical symptoms, pneumococcal vaccination in 2016. Wears contacts. ALLERGIES: TO PENICILLIN AND HYDROCODONE. SOCIAL HISTORY: The patient has a [id number]-iqmc history of smoking, occasional alcohol. No hard drug. The patient is a full code. HOME MEDICATIONS: Include lisinopril 20, tramadol 50, Prozac 20, Xanax 0.25, hydrochlorothiazide 12.5, prednisone 20. REVIEW OF SYSTEMS: Increased shortness of breath. Denies headaches, visual change, blurred vision, double vision. Denies any nausea or vomiting, but does have increased shortness of breath and chest pain as noted. The patient denies any abdominal pain. Denies any melena, hematochezia or hematemesis, and neurologically stable. PHYSICAL EXAMINATION: GENERAL: Ill-appearing white female. VITAL SIGNS: Blood pressure 142/70, pulse 100, respiratory rate 18, temperature 98.3, 3 liters at 92. HEENT: The patient's head was atraumatic, normocephalic. Eyes: PERRLA, without jaundice in this well-developed, well-nourished female, slightly obese. LUNGS: Diminished throughout, poor movement of air with some wheezing noted. CARDIOVASCULAR: Regular sinus rhythm, S1, S2. ABDOMEN: Protuberant, soft, nontender, no rebound or guarding. Positive bowel sounds. EXTREMITIES: No clubbing, cyanosis, nor edema. NEUROLOGIC: The patient was alert and oriented x 3. LABORATORY DATA: White count 4.2, hemoglobin 13.4 and 40. Chemistries: 140, 3.5, BUN and creatinine 17 and 0.9, sugar 130, 3.1 on albumin. C-reactive protein 80. Lactate dehydrogenase 290. Chest x-ray, CT of the chest demonstrated scattered bilateral ground-glass opacities and consolidations. IMPRESSION: Acute respiratory failure secondary to COVID-19, COVID-19 pneumonia, morbid obesity, moderate protein malnutrition. SARS antibody was positive as an outpatient. Elevated D-dimer. The patient on IV antibiotic therapy and continues to be monitored carefully with Decadron and Lovenox also being provided. CHRISTELLE DR: Harjinder TID: [id number]
[2021-07-21 20:45] VITALS: BP 154/91
[2021-07-21 23:49] VITALS: BP 149/89
[2021-07-22] MEDS: DEXAMETHASONE SOD PHOS 4 MG/ML VIAL. IVP SCH ×4 (00:47→21:29)
[2021-07-22 06:01] VITALS: BP 133/79
[2021-07-22] MEDS: hydroCHLOROthiazide 25 MG TABLET. PO SCH (07:47)
[2021-07-22] MEDS: AZITHROMYCIN 250 MG TABLET. PO SCH (07:47)
[2021-07-22] MEDS: ALPRAZolam 0.25 MG TABLET PO SCH ×3 (07:47→21:25)
[2021-07-22] MEDS: LACTOBACILLUS RHAMNOSUS GG 1 CAPSULE. PO SCH ×2 (07:47→21:25)
[2021-07-22] MEDS: LISINOPRIL 20 MG TABLET PO SCH (07:47)
[2021-07-22] MEDS: IPRATROPIUM/ALBUTEROL 20/100mcg/INH INHALER. INH SCH ×4 (08:00→20:00)
[2021-07-22] MEDS: ENOXAPARIN 40 MG/0.4 ML SYRINGE. SQ SCH ×2 (10:39→21:30)
[2021-07-22 10:59] VITALS: BP 140/75
[2021-07-22] MEDS: REMDESIVIR 100mg in NORMAL SALINE 250ML X 4 DAYS IV SCH (12:21)
[2021-07-22 15:31] VITALS: BP 139/83
[2021-07-22 19:15] VITALS: BP 138/85
[2021-07-22] MEDS: guaiFENesin DM 200MG/20MG 10 ML SYRUP PO PRN (21:30)
[2021-07-22 23:00] VITALS: BP 130/70
--- NOTE | 2021-07-23 03:07 | PN ---
SUBJECTIVE: A 56-year-old female in with acute respiratory failure secondary to COVID-19 pneumonia. The patient is resting fairly comfortably and making fairly good progress. Overall, she seems to be improving on her oxygen saturation 3 liters at 93, but goes down to 90%. OBJECTIVE: VITAL SIGNS: Blood pressure 130/80, respiratory 20, pulse 70, presently afebrile. GENERAL: The patient is alert and oriented. LUNGS: Diminished, poor movement of air, but improved overall. CARDIOVASCULAR: Regular sinus rhythm. ABDOMEN: Protuberant. EXTREMITIES: No clubbing, cyanosis. Trace edema. NEUROLOGIC: Intact. We will go ahead and continue with present drug regimen and make further adjust of those medications as indicated. IMPRESSION: 1. Acute respiratory failure secondary to COVID-19. 2. COVID-19 pneumonia. 3. Morbid obesity. 4. Moderate protein malnutrition. 5. Elevated D-dimer. 6. Continue with anticoagulation as well as other medications as indicated. AZALEA DR: Harjinder TID: [id number]
[2021-07-23] MEDS: DEXAMETHASONE SOD PHOS 4 MG/ML VIAL. IVP SCH ×3 (06:31→22:14)
[2021-07-23 07:00] VITALS: BP 144/77
[2021-07-23] MEDS: IPRATROPIUM/ALBUTEROL 20/100mcg/INH INHALER. INH SCH ×4 (08:36→20:00)
[2021-07-23] MEDS: AZITHROMYCIN 250 MG TABLET. PO SCH (08:37)
[2021-07-23] MEDS: LACTOBACILLUS RHAMNOSUS GG 1 CAPSULE. PO SCH ×2 (08:37→20:22)
[2021-07-23] MEDS: hydroCHLOROthiazide 25 MG TABLET. PO SCH (08:37)
[2021-07-23] MEDS: ALPRAZolam 0.25 MG TABLET PO SCH ×3 (08:37→20:23)
[2021-07-23] MEDS: LISINOPRIL 20 MG TABLET PO SCH (08:37)
[2021-07-23] MEDS: ENOXAPARIN 40 MG/0.4 ML SYRINGE. SQ SCH ×2 (08:39→22:14)
[2021-07-23 10:49] LABS: ALBUMIN 2.9 g/dL (3.4-5.0); ALBUMIN/GLOBULIN RATIO 0.8 (1.0-1.7); CALCIUM 8.4 mg/dL (8.5-10.1); CREATININE 0.8 mg/dL (0.6-1.0); GFR 73.9; POTASSIUM 3.7 mmol/L (3.5-5.1); TOTAL BILIRUBIN 0.4 mg/dL (0.2-1.0); TOTAL PROTEIN 6.4 g/dL (6.4-8.2)
[2021-07-23 11:15] VITALS: BP 132/95
[2021-07-23] MEDS: REMDESIVIR 100mg in NORMAL SALINE 250ML X 4 DAYS IV SCH (12:02)
[2021-07-23 15:35] VITALS: BP 143/85
[2021-07-23 18:51] VITALS: BP 151/96
[2021-07-23] MEDS: guaiFENesin DM 200MG/20MG 10 ML SYRUP PO PRN (20:23)
[2021-07-23 22:45] VITALS: BP 151/81
--- NOTE | 2021-07-23 23:09 | PN ---
SUBJECTIVE: A 56-year-old female in with COVID-19 pneumonia and seems to be doing a little bit better overall. Blood pressure 130/95, respirations 20, pulse 80, afebrile, 2 liters 92. The patient seems to be making better progress, feels a little bit more relief from the infections themselves, feels a little bit stronger, is able to move, has better overall functioning. We will go ahead and continue to monitor. Continue with present drug regimen otherwise. OBJECTIVE: LUNGS: The patient's lungs are diminished, clearer than they have been. CARDIOVASCULAR: Stable, shows overall improvement. IMPRESSION: Acute respiratory failure secondary to COVID-19, COVID-19 pneumonia, morbid obesity, moderate protein malnutrition, elevated D-dimer. PLAN: We will continue on present therapy for now until further progress is made. Continue as such. CADE DR: Harjinder TID: [id number]
[2021-07-24 05:50] VITALS: BP 149/84
[2021-07-24] MEDS: DEXAMETHASONE SOD PHOS 4 MG/ML VIAL. IVP SCH ×3 (05:52→20:56)
[2021-07-24] MEDS: AZITHROMYCIN 250 MG TABLET. PO SCH (08:15)
[2021-07-24] MEDS: IPRATROPIUM/ALBUTEROL 20/100mcg/INH INHALER. INH SCH ×4 (08:15→20:00)
[2021-07-24] MEDS: hydroCHLOROthiazide 25 MG TABLET. PO SCH (08:15)
[2021-07-24] MEDS: LACTOBACILLUS RHAMNOSUS GG 1 CAPSULE. PO SCH ×2 (08:15→20:56)
[2021-07-24] MEDS: ALPRAZolam 0.25 MG TABLET PO SCH ×3 (08:15→20:56)
[2021-07-24] MEDS: LISINOPRIL 20 MG TABLET PO SCH (08:16)
[2021-07-24] MEDS: ENOXAPARIN 40 MG/0.4 ML SYRINGE. SQ SCH ×2 (08:17→20:56)
[2021-07-24 11:09] VITALS: BP 146/88
[2021-07-24] MEDS: REMDESIVIR 100mg in NORMAL SALINE 250ML X 4 DAYS IV SCH (12:03)
[2021-07-24 16:16] VITALS: BP 155/95
[2021-07-24 19:38] VITALS: BP 152/90
--- NOTE | 2021-07-24 23:25 | PN ---
SUBJECTIVE: A 56-year-old female in with acute respiratory failure secondary to COVID-19 pneumonia. She is making steady progress. Receiving remdesivir. OBJECTIVE: VITAL SIGNS: Blood pressure 150/90, respiratory rate 20, pulse 70, afebrile, 2 liters at 95. GENERAL: The patient is alert and oriented. LUNGS: Diminished but clearer than they have been. CARDIOVASCULAR: Stable. ABDOMEN: Soft, nontender. No rebound or guarding. Protuberant. EXTREMITIES: No clubbing, cyanosis or edema. NEUROLOGIC: Stable. ASSESSMENT AND PLAN: Continue with present drug regimen, otherwise. COVID-19 pneumonia, acute respiratory failure, morbid obesity, moderate protein malnutrition, elevated D-dimer, hyperglycemia, severe protein malnutrition, positive COVID on the PCR, but negative on the rapid. Continue with aggressive therapy as indicated above. RAJESH DR: Harjinder TID: [id number]
[2021-07-24 23:58] VITALS: BP 161/79
[2021-07-25] MEDS: DEXAMETHASONE SOD PHOS 4 MG/ML VIAL. IVP SCH ×3 (06:11→20:47)
[2021-07-25 06:28] VITALS: BP 136/79
[2021-07-25] MEDS: ENOXAPARIN 40 MG/0.4 ML SYRINGE. SQ SCH ×2 (08:04→20:47)
[2021-07-25] MEDS: IPRATROPIUM/ALBUTEROL 20/100mcg/INH INHALER. INH SCH ×4 (08:04→20:47)
[2021-07-25] MEDS: hydroCHLOROthiazide 25 MG TABLET. PO SCH (08:05)
[2021-07-25] MEDS: ALPRAZolam 0.25 MG TABLET PO SCH ×3 (08:05→20:47)
[2021-07-25] MEDS: LACTOBACILLUS RHAMNOSUS GG 1 CAPSULE. PO SCH ×2 (08:05→20:47)
[2021-07-25] MEDS: AZITHROMYCIN 250 MG TABLET. PO SCH (08:06)
[2021-07-25] MEDS: LISINOPRIL 20 MG TABLET PO SCH (08:06)
[2021-07-25 11:50] VITALS: BP 150/81
[2021-07-25] MEDS: REMDESIVIR 100mg in NORMAL SALINE 250ML X 4 DAYS IV SCH (14:02)
[2021-07-25 16:30] VITALS: BP 149/83
[2021-07-25 21:00] VITALS: BP 144/81
--- NOTE | 2021-07-25 23:54 | PN ---
SUBJECTIVE: The patient with COVID-19 pneumonia, acute respiratory failure. She is resting fairly comfortably, making fairly good progress overall. OBJECTIVE: VITAL SIGNS: Blood pressure 150/80, respiratory 18, pulse 60, afebrile, 2 liters 93. GENERAL: The patient is still very short of breath with minimal exertion. LUNGS: Diminished, poor movement of air. CARDIOVASCULAR: Regular sinus rhythm. ABDOMEN: Soft, nontender. No rebound or guarding. Positive bowel sounds. No hepatosplenomegaly noted. EXTREMITIES: No clubbing, cyanosis, nor edema. NEUROLOGIC: Stable. The patient continues on present drug regimen. IMPRESSION AND PLAN: Acute respiratory failure secondary to COVID-19 pneumonia, morbid obesity, elevated D-dimer, severe protein malnutrition, and hyperglycemia. RAJESH DR: Harjinder TID: [id number]
[2021-07-26 00:25] VITALS: BP 121/91
[2021-07-26] MEDS: DEXAMETHASONE SOD PHOS 4 MG/ML VIAL. IVP SCH ×2 (06:23→15:00)
[2021-07-26 06:30] VITALS: BP 136/87
[2021-07-26] MEDS: IPRATROPIUM/ALBUTEROL 20/100mcg/INH INHALER. INH SCH ×2 (08:09→11:21)
[2021-07-26] MEDS: ALPRAZolam 0.25 MG TABLET PO SCH ×2 (08:10→15:00)
[2021-07-26] MEDS: LACTOBACILLUS RHAMNOSUS GG 1 CAPSULE. PO SCH (08:10)
[2021-07-26] MEDS: hydroCHLOROthiazide 25 MG TABLET. PO SCH (08:10)
[2021-07-26] MEDS: LISINOPRIL 20 MG TABLET PO SCH (08:10)
[2021-07-26] MEDS: AZITHROMYCIN 250 MG TABLET. PO SCH (08:10)
[2021-07-26] MEDS: ENOXAPARIN 40 MG/0.4 ML SYRINGE. SQ SCH (08:11)
[2021-07-26 10:53] VITALS: BP 142/80
[2021-07-26] MEDS ORDERED: IPRA4AER INH (14:26)
[2021-07-26] MEDS ORDERED: LACT1CAP19 PO (14:26)
[2021-07-26] MEDS ORDERED: AZIT250T6 PO (14:26)
[2021-07-26] MEDS ORDERED: METH4TAB2 PO (14:26)
[2021-07-26] MEDS ORDERED: ASPI-630 PO (14:26)
[2021-07-26] MEDS ORDERED: GUAI5SYR PO (14:26)
--- NOTE | 2021-07-27 21:41 | DS ---
DATE OF DISCHARGE: 07/26/2021 HOSPITAL COURSE: A 56-year-old female who came in with acute respiratory failure with COVID-19 pneumonia. The patient had been ill for some time a week or more and finally came in through the Emergency Room and was admitted because of increased shortness of breath, struggling for air and the like. The patient was placed on remdesivir, Decadron, aggressive pulmonary toilet as well as IV antibiotic therapy. The patient's rapid test was negative, positive for the PCR, however. The patient made fairly good progress overall. Blood sugars were slightly elevated obviously with the Decadron. Her C-reactive protein was 75. She was in severe protein malnutrition. D-dimer was elevated, but the x-rays were consistent with the ground-glass opacities and multiple focal pneumonias. The patient made good progress, but required oxygen as an outpatient. She was dropping down into the 80s with any exertion from her bed to the bathroom about 6 feet at best. Final blood pressure 142/80, respiratory 20, pulse 72, afebrile. IMPRESSION: Therefore of acute respiratory failure secondary to COVID-19 pneumonia, unvaccinated; obesity; hyperglycemia; severe protein malnutrition; essential hypertension. The patient will continue on present drug regimen, heart healthy diet, decreased activity, oxygen, isolation for next 10 days to 2. APRIL/TALI DR: APRIL/leo TID: [id number]
== END 2021-07-26 15:43 | disposition home or self-care (01) | DRG 177 ==
LOC: ER 13:15 → 1 SOUTH 16:20
PROVIDERS: ADMIT Family Medicine; ATTEND Family Medicine
PROC: XW033E5 Introduction of Remdesivir Anti-infective into Peripheral Vein, Percutaneous Approach, New Technology Group 5 (ICD-10-PCS; principal; 2021-07-21)
DX: U07.1 COVID-19 (principal); J96.01 Acute respiratory failure with hypoxia; J12.82 Pneumonia due to coronavirus disease 2019; E43 Unspecified severe protein-calorie malnutrition; Z68.42 Body mass index [BMI] 45.0-49.9, adult; I10 Essential (primary) hypertension; E66.01 Morbid (severe) obesity due to excess calories; F42.9 Obsessive-compulsive disorder, unspecified; M32.9 Systemic lupus erythematosus, unspecified; I25.2 Old myocardial infarction; Z90.710 Acquired absence of both cervix and uterus; Z87.891 Personal history of nicotine dependence; Z87.442 Personal history of urinary calculi; Z90.49 Acquired absence of other specified parts of digestive tract; Z88.0 Allergy status to penicillin
CPT/HCPCS: 36415; 71046; 71250; 80053; 82550; 83605; 83615; 84484; 85025; 85379; 86140; 87040; 87426; 93005; 94618; 94640; 96361; 96374; 96375; J0456; J0696; J1100; J1650; J2405; J7050; U0003; 99285-25; J7030